=== PATIENT | male | born 1955 | race Caucasian/White ===

== ENCOUNTER 2017-09-20 12:10 | Emergency (ER) | payer MEDICARE, OTHER ==
[2017-09-20] MEDS ORDERED: IOHEXOL 350 MG/ML 10 ML VIAL (for RAD DIAG) IVCONTRAST ONE (12:11)
[2017-09-20 12:12] VITALS: BP 166/87; PULSE 86; RESP 20; TEMP 97.7; O2SAT 100
--- NOTE | 2017-09-20 12:30 | PD ---
HPI Chief Complaint: Skin Problem Time Seen by Provider: 12:17 Travel History International Travel<30 days: No Contact w/Intl Traveler<30days: No Traveled to known affect area: No History of Present Illness HPI 62 y/o male presents with mass to his left upper chest over the past couple weeks. It has increased in size significantly since it started so primary sent here for further workup. He denies any other concurrent complaints. Quality is hard. Location is left chest. Duration is 3 weeks. He has his power of senior attorney with him to help answer questions as she states he has difficulty with his mental capacity. [facility] Past Medical History Medical History: Denies Significant Hx ?: Not Past Surgical History Surgical History: No Previous Surgery Social History Tobacco Use: Yes Allergies-Medications (Allergen,Severity, Reaction): Coded Allergies: No Known Allergies (Unverified , 09/20/17) Reported Meds & Prescriptions Reported Meds & Active Scripts Active Terry (Hydrocodone-Acetaminophen) 5 Mg-325 Mg Tab 1 Tab PO Q6H PRN Reported Tramadol (Tramadol HCl) 50 Mg Tab 50 Mg PO Q6H PRN Review of Systems ROS Limitations: Poor Historian Except as stated in HPI: all other systems reviewed are Neg Physical Exam Exam Limitations: Poor Historian Narrative GENERAL: 62-year-old male in no apparent distress SKIN: Focused skin assessment warm/dry. HEAD: Atraumatic. Normocephalic. EYES: Pupils equal and round. No scleral icterus. No injection or drainage. ENT: No nasal bleeding or discharge. Mucous membranes pink and moist. NECK: Trachea midline. CARDIOVASCULAR: Regular rate and rhythm. No murmur appreciated. RESPIRATORY: No accessory muscle use. Clear to auscultation. Breath sounds equal bilaterally. GASTROINTESTINAL: Abdomen soft, non-tender, nondistended MUSCULOSKELETAL: No obvious deformities. No clubbing. No cyanosis. No edema. NEUROLOGICAL: Awake. No obvious cranial nerve deficits. Motor grossly within normal limits. Normal speech. Chest wall: Patient has large mass noted to left chest wall and mid supraclavicular region without overlying cellulitis Data Data Last Documented VS Vital Signs Date Time Temp Pulse Resp B/P (MAP) Pulse Ox O2 Delivery O2 Flow Rate FiO2 09/20/17 16:24 67 16 189/90 (123) 99 Room Air 09/20/17 12:12 97.7 Orders Orders Basic Metabolic Panel (Bmp) (09/20/17 12:18) Complete Blood Count With Diff (09/20/17 12:18) Magnesium (Mg) (09/20/17 12:18) Prothrombin Time / Inr (Pt) (09/20/17 12:18) Act Partial Throm Time (Ptt) (09/20/17 12:18) Chest, Single Ap (09/20/17 12:18) Ecg Monitoring (09/20/17 12:18) Bilateral Bp Monitoring (09/20/17 12:18) Iv Access Insert/Monitor (09/20/17 12:18) Oximetry (09/20/17 12:18) Ct Pulmonary Angiogram (09/20/17 12:18) Acetamin-Hydrocod 325-5 Mg (Terry 5-325 (09/20/17 15:15) Iohexol 350 Inj (Omnipaque 350 Inj) (09/20/17 12:11) Ed Discharge Order (09/20/17 18:20) Labs Laboratory Tests Test 09/20/17 12:55 White Blood Count 6.1 TH/MM3 Red Blood Count 4.41 MIL/MM3 Hemoglobin 14.4 GM/DL Hematocrit 41.5 % Mean Corpuscular Volume 94.3 FL Mean Corpuscular Hemoglobin 32.6 PG Mean Corpuscular Hemoglobin Concent 34.6 % Red Cell Distribution Width 14.1 % Platelet Count 136 TH/MM3 Mean Platelet Volume 9.5 FL Neutrophils (%) (Auto) 71.1 % Lymphocytes (%) (Auto) 17.5 % Monocytes (%) (Auto) 10.6 % Eosinophils (%) (Auto) 0.3 % Basophils (%) (Auto) 0.5 % Neutrophils # (Auto) 4.3 TH/MM3 Lymphocytes # (Auto) 1.1 TH/MM3 Monocytes # (Auto) 0.6 TH/MM3 Eosinophils # (Auto) 0.0 TH/MM3 Basophils # (Auto) 0.0 TH/MM3 CBC Comment DIFF FINAL Differential Comment Prothrombin Time 9.9 SEC Prothromb Time International Ratio 1.0 RATIO Activated Partial Thromboplast Time 27.1 SEC Blood Urea Nitrogen 3 MG/DL Creatinine 0.55 MG/DL Random Glucose 73 MG/DL Calcium Level 8.5 MG/DL Magnesium Level 1.8 MG/DL Sodium Level 139 MEQ/L Potassium Level 3.8 MEQ/L Chloride Level 103 MEQ/L Carbon Dioxide Level 24.3 MEQ/L Anion Gap 12 MEQ/L Estimat Glomerular Filtration Rate 151 ML/MIN MDM Medical Decision Making Medical Screen Exam Complete: Yes Emergency Medical Condition: Yes Medical Record Reviewed: Yes (Past history confirmed) Interpretation(s) CBC & BMP Diagram 09/20/17 12:55 Calcium Level 8.5, Magnesium Level 1.8 Last 24 hours Impressions Chest X-Ray 09/20/17 1218 Signed Impressions: Service Date/Time: Wednesday, September 20, 2017 12:53 - CONCLUSION: 1. Elevation of the left hemidiaphragm with likely minimal left basilar atelectasis/scarring. Urban Goodman MD CT Angiography 09/20/17 1218 Signed Impressions: Service Date/Time: Wednesday, September 20, 2017 17:32 - CONCLUSION: 1. 5 cm mass centered in the head of the clavicle on the left with extensive bony destruction. A primary consideration is metastatic malignancy. 2. 2 approximately 2 cm masses in the right lung. 3. No evidence of pulmonary embolus. Marco Antonio Goodson MD Differential Diagnosis Abscess, cancer, mass Narrative Course will check blood work, CT and follow ed workup with lung masses and mass over left clavicle with bony destruction. Will discuss with oncology Patient and family updated and agreed to urgent oncology outpatient follow-up. Requesting pain medication until follow-up and will provide with Narco. Patient denies any new complaints, all questions answered. Patient knows that follow up is incumbent on them and to return to the emergency room immediately if new or worsening symptoms develop. Patient given strict return precautions, vitals reviewed and are normal, agrees to further workup as an outpatient. Physician Communication Physician Communication dr mcmillan states can follow outpatient Diagnosis Primary Impression: Chest mass Referrals: Abimael Mcmillan MD call for appointment Patient Instructions: General Instructions Additional Instructions: return as needed, norco as needed- don't take while driving Med/Other Pt SpecificInfo: Prescription(s) given Scripts Hydrocodone-Acetaminophen (Terry) 5 Mg-325 Mg Tab 1 TAB PO Q6H Y for PAIN, #15 TAB 0 Refills Prov: Arlin Arguelles MD 09/20/17 Disposition: 01 DISCHARGE HOME Condition: Stable Arlin Arguelles MD Sep 20, 2017 12:30
[2017-09-20 12:52] VITALS: PULSE 85; RESP 18; O2SAT 99
[2017-09-20 13:16] LABS: AUTOMATED NEUTROPHIL # 4.3 TH/MM3 (1.8-7.7); BASOPHIL % 0.5 % (0.0-2.0); EOSINOPHIL % 0.3 % (0.0-4.0); HEMATOCRIT 41.5 % (39.0-51.0); HEMOGLOBIN 14.4 GM/DL (13.0-17.0); LYMPH % 17.5 % (9.0-44.0); LYMPHOCYTE # 1.1 TH/MM3 (1.0-4.8); MEAN CELL VOLUME 94.3 FL (80.0-100.0); MEAN CORPUSCULAR HEMOGLOBIN 32.6 PG (27.0-34.0); MEAN CORPUSCULAR HGB CONC 34.6 % (32.0-36.0); MEAN PLATELET VOLUME 9.5 FL (7.0-11.0); MONO % 10.6 % (0.0-8.0); MONOCYTE # 0.6 TH/MM3 (0-0.9); NEUT % 71.1 % (16.0-70.0); PLATELET COUNT 136 TH/MM3 (150-450); RED BLOOD COUNT 4.41 MIL/MM3 (4.50-5.90); RED CELL DISTRIBUTION WIDTH 14.1 % (11.6-17.2); WHITE BLOOD COUNT 6.1 TH/MM3 (4.0-11.0)
[2017-09-20 13:26] LABS: PROTHROMBIN TIME - PATIENT 9.9 SEC (9.8-11.6)
--- NOTE | 2017-09-20 13:28 | RADRPT ---
EXAM DATE/TIME: 09/20/2017 12:53 [facility] COMPARISON: No previous studies available for comparison. INDICATIONS : Chest pain, lump in left clavicle region. MEDICAL HISTORY : None. SURGICAL HISTORY : None. ENCOUNTER: Initial ACUITY: 3 weeks PAIN SCORE: Non-responsive. LOCATION: Left chest FINDINGS: There is elevation of the left with minimal airspace disease in the lung base. Cardiomediastinal cont ours are within normal limits. Bony thorax is intact. CONCLUSION: 1. Elevation of the left hemidiaphragm with likely minimal left basilar atelectasis/scarring. Urban Goodman MD on September 20, 2017 at 13:24 Board Certified Radiologist. This report was verified electronically.
[2017-09-20 14:21] LABS: BICARBONATE 24.3 MEQ/L (21.0-32.0); CALCIUM 8.5 MG/DL (8.5-10.1); CREATININE 0.55 MG/DL (0.60-1.30); MAGNESIUM 1.8 MG/DL (1.5-2.5)
[2017-09-20] MEDS ORDERED: ACETAMINOPHEN/HYDROcodone 325 MG/5 MG TAB PO ONE (15:15)
[2017-09-20 16:24] VITALS: BP 189/90; PULSE 67; RESP 16; O2SAT 99
--- NOTE | 2017-09-20 17:49 | RADRPT ---
EXAM DATE/TIME: 09/20/2017 17:32 [facility] COMPARISON: No previous studies available for comparison. INDICATIONS : Chest pain, left supraclavicular mass. IV CONTRAST: 75 cc Omnipaque 350 (iohexol) IV RADIATION DOSE: 11.39 CTDIvol (mGy) MEDICAL HISTORY : None SURGICAL HISTORY : None. ENCOUNTER: Initial ACUITY: 3 weeks PAIN SCALE: 0/10 LOCATION: chest TECHNIQUE: Volumetric scanning of the chest was performed using a pulmonary embolism protocol MIP images were re constructed. Using automated exposure control and adjustment of the mA and/or kV according to patien t size, radiation dose was kept as low as reasonably achievable to obtain optimal diagnostic quality images. DICOM format image data is available electronically for review and comparison. Follow-up recommendations for detected pulmonary nodules are based at a minimum on nodule size and pa tient risk factors according to Fleischner Society Guidelines. FINDINGS: PULMONARY ARTERIES: No filling defects are seen in the pulmonary arteries through the segmental level. LUNGS: 2.3 cm cavitary mass in the anterior right upper lobe on image #55. 2.0 cm rounded nodular density in the anterior right lung apex on image #26. Scarring at the lung apices also noted. Mild paraseptal e mphysema and mild peripheral reticular opacity bilaterally in the lungs. PLEURAE: There is no pleural thickening or pleural effusion. MEDIASTINUM: No enlarged lymph nodes. Coronary artery calcifications. MUSCULOSKELETAL: 5.6 cm mass centered in the clavicular head with extensive clavicular bony destruction/erosion. The m ass protrudes into the subcutaneous adipose tissue. MISCELLANEOUS: The visualized upper abdominal organs demonstrate no acute abnormality. CONCLUSION: 1. 5 cm mass centered in the head of the clavicle on the left with extensive bony destruction. A prim agata consideration is metastatic malignancy. 2. 2 approximately 2 cm masses in the right lung. 3. No evidence of pulmonary embolus. Marco Antonio Goodson MD on September 20, 2017 at 17:41 Board Certified Radiologist. This report was verified electronically.
[2017-09-20] MEDS ORDERED: TRAM50TA PO (17:59)
[2017-09-20] MEDS ORDERED: NORC5TAB PO ×2 (18:21→18:25)
== END 2017-09-20 18:47 | disposition home or self-care (01) ==
LOC: NEPE 12:10
DX: R22.2 Localized swelling, mass and lump, trunk (principal); R07.9 Chest pain, unspecified; R91.8 Other nonspecific abnormal finding of lung field; Z72.0 Tobacco use; Z79.899 Other long term (current) drug therapy
CPT/HCPCS: 71045; 71275; 80048; 83735; 85025; 85610; 85730; 99285; Q9967